=== PATIENT | female | born 1995 | race Caucasian/White ===

== ENCOUNTER 2017-06-03 16:09 | Outpatient (CLI) | payer SELFPAY ==
[~2017-06-03] VITALS: Ht 162.6 cm; Wt 97.3 kg
[2017-06-03 16:20] VITALS: Ht 162.6 cm; Wt 97.3 kg
[2017-06-03 16:21] VITALS: BP 132/83; PULSE 101; RESP 18
--- NOTE | 2017-06-03 17:38 | RADRPT ---
PROCEDURE: Limited obstetric ultrasound CLINICAL INDICATION: Pain , PTL TECHNIQUE: Multiple transverse and longitudinal grayscale images of the pelvis were obtained fowler sabdominally and transvaginally.. COMPARISON: same day FINDINGS: The cervix is closed with a length of 4.1 cm. There is a single viable intrauterine gestation. Cardiac activity is present with 144 beats per min petr. There is a breech presentation. The placenta is anterior. There is no evidence for an abruption or placenta previa. RPTAT: AA IMPRESSION: Cervix length measures 4.1 cm. .Rolando Gamble MD, Date Time Electronically viewed and signed by .Rolando Gamble MD, on 06/03/2017 17:38 .S/
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
== END 2017-06-03 20:10 | disposition home or self-care (01) ==
LOC: OBT 16:09 → L-D 16:12 → OBT 20:10
PROVIDERS: ATTEND Specialist
DX: O9A.213 Injury, poisoning and certain other consequences of external causes complicating pregnancy, third trimester (principal); T14.90 Injury, unspecified; V43.52XA Car driver injured in collision with other type car in traffic accident, initial encounter; Y92.410 Unspecified street and highway as the place of occurrence of the external cause; Z3A.32 32 weeks gestation of pregnancy
CPT/HCPCS: 76817; 76818